=== PATIENT | female | born 1960 | race Caucasian/White ===

== ENCOUNTER 2016-12-18 10:28 | Emergency (ER) | payer OTHER ==
[~2016-12-18] VITALS: Ht 170.2 cm; Wt 65.9 kg
[~2016-12-18 10:28] MED LIST: ACCUPRIL10 MG PO; ALEVE220 MG PO; ALPRAZOLAM0.5 MG PO; ALPRAZOLAM1 MG PO; ASCORBIC ACID500 M3 PO; ASPIR-LOW81 MG PO; ATARAX,VISTARIL25 MG PO; ATIVAN0.5 MG PO; ATORVASTATIN CA40 MG PO; BENTYL10 MG PO; BENZONATATE100 MG PO; BIOTENE DRY MO237 ML MM; BREO ELLIPTA I1 EACH IH; CARAFATE1 GM PO; CELEXA20 MG PO; CELEXA40 MG PO; CIPRO500 MG PO; CLONAZEPAM1 MG PO; CLOPIDOGREL75 MG PO; COLACE100 MG PO; COLON HERBA1 CAPSULE PO; COMBIVENT RESPIM4 GM IH; COMBIVENT200 INHALA IH; CYANOCOBALAM1000 MCG PO; DESYREL100 MG PO; DICYCLOMINE HCL20 MG PO; DITROPAN5 MG PO; DUONEB 2.5-0.5 M3 ML AEROSOL; FLEXERIL10 MG PO; FLEXERIL5 MG PO; FLOVENT 22120 INHALA IH; FOLIC ACID1 MG PO; HYDROXYZINE HCL10 MG PO; HYDROXYZINE PAM25 MG PO; KLONOPIN1 MG PO; LEVAQUIN750 MG PO; LEVOTHROID100 MCG PO; LEVOXYL112 MCG PO; LIDODERM 5% P1 PATCH TD; LIPITOR80 MG PO; LO-DOSE ASPIRIN81 M1 PO; LORATADINE10 M2 PO; LYRICA100 MG PO; METHOTREXATE2.5 MG PO; METOPROLOL SUCC25 MG PO; MOTRIN800 MG PO; NICODERM CQ1 EACH TD; NORCO 5/3251 TABLET PO; OMEPRAZOLE40 M1 PO; PLAQUENIL200 MG PO; PLAVIX75 MG PO; PREDNISONE10 MG PO; PREDNISONE2.5 MG PO; PREDNISONE20 MG PO; PREDNISONE5 MG PO; PROBIOTIC1 EAC1 PO; PROTONIX40 MG PO; PROVENTIL2.5 MG/3 M IH; RANITIDINE HCL150 MG PO; REQUIP0.25 MG PO; REQUIP1 MG PO; SPIRIVA1 INHALATI IH; SUCRALFATE1 GM PO; SUMATRIPTAN SU100 MG PO; SYMBICORT60 INHALAT IH; SYNTHROID112 MCG PO; SYNTHROID125 MCG PO; TAMIFLU75 MG PO; TRAMADOL HCL50 MG PO; TRAZODONE HCL100 MG PO; TYLENOL WITH C1 EACH PO; ULTRAM50 MG PO; VENTOLIN HFA18 GM IH; VITAMIN D1000 INTUN PO; ZESTRIL,PRINIVI10 MG PO; ZOFRAN4 MG PO
[2016-12-18 12:08] LABS: ADD MIUA? YES; BILIRUBIN NEGATIVE; BLOOD MODERATE; COLOR COLORLESS ((YELLOW)); GLUCOSE (STRIP) NEGATIVE; KETONES NEGATIVE; LEUKOCYTES NEGATIVE; NITRITE NEGATIVE; PROTEIN (STRIP) NEGATIVE; SPECIFIC GRAVITY 1.004 (1.000-1.030); UROBILINOGEN 0.2 MG/DL (0.2-1.0)
[2016-12-18 12:10] LABS: BACTERIA NONE SEEN /HPF; EPITHELIAL CELLS NONE SEEN /HPF; MUCUS TRACE /LPF; RED BLOOD CELLS 0-5 /HPF (0-5); WHITE BLOOD CELLS 0-5 /HPF (0-5)
[2016-12-18] MEDS ORDERED: FLEXERIL10 MG PO (14:31)
[2016-12-18] MEDS ORDERED: ULTRAM50 MG PO (14:31)
[2016-12-18 14:48] VITALS: BP 121/64
== END 2016-12-18 14:57 | disposition home or self-care (01) ==
LOC: EME 10:28
PROVIDERS: Emergency Medicine
DX: M54.30 Sciatica, unspecified side (principal); M19.90 Unspecified osteoarthritis, unspecified site; J44.9 Chronic obstructive pulmonary disease, unspecified; M79.7 Fibromyalgia; I10 Essential (primary) hypertension; K21.9 Gastro-esophageal reflux disease without esophagitis; E03.9 Hypothyroidism, unspecified; M06.9 Rheumatoid arthritis, unspecified; M32.9 Systemic lupus erythematosus, unspecified; Z87.891 Personal history of nicotine dependence
CPT/HCPCS: 72100; 73502; 81003; 87086; 99281; 99285

== ENCOUNTER 2017-05-13 12:34 | Emergency (ER) | payer OTHER ==
[~2017-05-13] VITALS: Ht 170.2 cm; Wt 65.0 kg
[2017-05-13 13:53] LABS: MCH 33.9 PG (29.0-34.0); MCHC 34.5 G/DL (30.0-36.0); MCV 98.1 FL (83-99); PLATELET COUNT 162 K/uL (156-360); RBC DIS.WIDTH-CV 11.8 % (11.8-14.6); RBC DIS.WIDTH-SD 42.7 % (39-53); RED BLOOD COUNT 4.28 M/uL (3.80-5.20); WHITE BLOOD COUNT 6.5 K/uL (4.1-10.2)
[2017-05-13 14:02] LABS: ADD MIUA? YES; BILIRUBIN NEGATIVE; BLOOD MODERATE; COLOR STRAW ((YELLOW)); GLUCOSE (STRIP) NEGATIVE; KETONES NEGATIVE; LEUKOCYTES NEGATIVE; NITRITE NEGATIVE; PROTEIN (STRIP) NEGATIVE; SPECIFIC GRAVITY 1.004 (1.000-1.030); UROBILINOGEN 0.2 MG/DL (0.2-1.0)
[2017-05-13 14:06] LABS: BACTERIA RARE /HPF; EPITHELIAL CELLS RARE /HPF; MUCUS TRACE /LPF; RED BLOOD CELLS 0-5 /HPF (0-5); UCUL ADDED? NO; WHITE BLOOD CELLS 0-5 /HPF (0-5)
[2017-05-13 14:13] LABS: CHLORIDE 104 mEq/L (99-109); POTASSIUM 3.4 mEq/L (3.7-5.4); SODIUM 140 mEq/L (136-147)
[2017-05-13 14:15] LABS: GLUCOSE 77 mg/dL (70-99)
[2017-05-13 14:16] LABS: ANION GAP 9 MEQ/L (2-14)
[2017-05-13 14:17] LABS: TOTAL BILIRUBIN 0.5 mg/dL (0.0-1.0)
[2017-05-13 14:18] LABS: ALKALINE PHOSPHATASE 93 IU/L (3-129)
[2017-05-13 14:19] LABS: GFR ESTIMATE (CALCULATED) > 59 mL/min/
[2017-05-13 14:20] LABS: UREA NITROGEN (BUN) 10 mg/dL (9-23)
[2017-05-13 14:22] LABS: LIPASE 27 U/L (1.0-51.0)
[2017-05-13] MEDS ORDERED: BENTYL20 MG PO (15:11)
[2017-05-13] MEDS ORDERED: ZOFRAN ODT4 MG PO (15:11)
[2017-05-13 15:19] VITALS: BP 100/53
== END 2017-05-13 15:20 | disposition home or self-care (01) ==
LOC: EME 12:34
PROVIDERS: Nurse Practitioner Family
DX: R10.84 Generalized abdominal pain (principal); R19.7 Diarrhea, unspecified; I10 Essential (primary) hypertension; J44.9 Chronic obstructive pulmonary disease, unspecified; G89.29 Other chronic pain; K21.9 Gastro-esophageal reflux disease without esophagitis; I25.2 Old myocardial infarction; E03.9 Hypothyroidism, unspecified; M79.7 Fibromyalgia; F32.9 Major depressive disorder, single episode, unspecified; F41.9 Anxiety disorder, unspecified; F17.200 Nicotine dependence, unspecified, uncomplicated; Z99.81 Dependence on supplemental oxygen; Z79.02 Long term (current) use of antithrombotics/antiplatelets; Z79.82 Long term (current) use of aspirin; Z98.51 Tubal ligation status
CPT/HCPCS: 74177; 80053; 81003; 83690; 85027; 99281; 99284; J1885; J2405; J7030

== ENCOUNTER 2017-09-14 00:08 | Observation (INO) | payer OTHER ==
[~2017-09-14] VITALS: Ht 170.2 cm; Wt 71.8 kg
[~2017-09-14 00:08] MED LIST changes: +ACCUPRIL20 MG PO; -ALPRAZOLAM0.5 MG PO; +BENTYL20 MG PO; -SYNTHROID125 MCG PO; +SYNTHROID137 MCG PO; +ZOFRAN ODT4 MG PO
[2017-09-14 00:44] LABS: HEMATOCRIT 41.8 % (36.0-46.0); HEMOGLOBIN 14.3 G/DL (11.9-15.5); MCH 35.3 PG (29.0-34.0); MCHC 34.2 G/DL (30.0-36.0); MCV 103.2 FL (83-99); PLATELET COUNT 164 K/uL (156-360); RBC DIS.WIDTH-CV 11.4 % (11.8-14.6); RBC DIS.WIDTH-SD 43.8 % (39-53); RED BLOOD COUNT 4.05 M/uL (3.80-5.20); WHITE BLOOD COUNT 8.7 K/uL (4.1-10.2)
[2017-09-14 01:05] LABS: CHLORIDE 104 mEq/L (99-109); POTASSIUM 3.7 mEq/L (3.7-5.4); SODIUM 139 mEq/L (136-147)
[2017-09-14 01:07] LABS: GLUCOSE 104 mg/dL (70-99)
[2017-09-14 01:11] LABS: CREATININE 1.6 mg/dL (0.6-1.3); GFR ESTIMATE (CALCULATED) 35 mL/min/; UREA NITROGEN (BUN) 23 mg/dL (9-23)
[2017-09-14 01:20] LABS: TROP-I INTERPRETATION NEGATIVE; TROPONIN-I < 0.01 ng/mL (0.0-0.30)
[2017-09-14 02:23] LABS: APPEARANCE SL.HAZY ((CLEAR)); BILIRUBIN NEGATIVE; BLOOD NEGATIVE; COLOR YELLOW ((YELLOW)); GLUCOSE (STRIP) NEGATIVE; KETONES NEGATIVE; LEUKOCYTES NEGATIVE; NITRITE NEGATIVE; PROTEIN (STRIP) NEGATIVE; UROBILINOGEN 0.2 MG/DL (0.2-1.0)
[2017-09-14 02:31] LABS: BACTERIA NONE SEEN /HPF; EPITHELIAL CELLS RARE /HPF; MUCUS TRACE /LPF; RED BLOOD CELLS 0-5 /HPF (0-5); UCUL ADDED? NO; WHITE BLOOD CELLS 0-5 /HPF (0-5)
[2017-09-14 07:12] LABS: HEMATOCRIT 39.6 % (36.0-46.0); HEMOGLOBIN 13.3 G/DL (11.9-15.5); MCH 35.2 PG (29.0-34.0); MCHC 33.6 G/DL (30.0-36.0); MCV 104.8 FL (83-99); PLATELET COUNT 134 K/uL (156-360); RBC DIS.WIDTH-CV 11.5 % (11.8-14.6); RBC DIS.WIDTH-SD 44.2 % (39-53); RED BLOOD COUNT 3.78 M/uL (3.80-5.20); WHITE BLOOD COUNT 5.9 K/uL (4.1-10.2)
[2017-09-14 07:45] LABS: TROP-I INTERPRETATION NEGATIVE; TROPONIN-I < 0.01 ng/mL (0.0-0.30)
[2017-09-14 07:54] LABS: HDL CHOLESTEROL 37 MG/DL (Desirable>=50); LDL CHOLESTEROL 34 mg/dL (Desirable<100); NON-HDL CHOLESTEROL 47 mg/dL (Desirable<160); TOTAL CHOLESTEROL 84 mg/dL (Desirable<200); TRIGLYCERIDES 63 MG/DL (Normal: <150)
[2017-09-14 07:55] LABS: ALBUMIN 3.3 G/DL (3.2-4.8); ALKALINE PHOSPHATASE 64 IU/L (3-129); ALT (GPT) 15 IU/L (3-49); AST (GOT) 14 IU/L (2-34); CHLORIDE 111 MEQ/L (99-109); GLUCOSE 67 mg/dL (70-99); POTASSIUM 3.8 MEQ/L (3.7-5.4); SODIUM 144 MEQ/L (136-147); TOTAL BILIRUBIN 0.2 MG/DL (0.0-1.0); TOTAL PROTEIN 5.1 G/DL (6.4-8.3); UREA NITROGEN (BUN) 19 mg/dL (9-23)
[2017-09-14 07:56] LABS: GFR ESTIMATE (CALCULATED) > 59 mL/min/
[2017-09-14] MEDS ORDERED: ZOLPIDEM TARTRA10 MG PO (11:14)
[2017-09-14] MEDS ORDERED: DULOXETINE HCL60 MG PO (11:15)
[2017-09-14] MEDS ORDERED: LYRICA75 MG PO (11:15)
[2017-09-14 13:07] LABS: TROP-I INTERPRETATION NEGATIVE; TROPONIN-I < 0.01 ng/mL (0.0-0.30)
[2017-09-14 13:09] VITALS: BP 152/76
[2017-09-14 13:20] LABS: HEMOGLOBIN A1c (GLYCOHEMOGLOB) 4.8 % (Below 5.7)
[2017-09-14 16:41] VITALS: BP 134/61
[2017-09-14 19:23] LABS: TROP-I INTERPRETATION NEGATIVE; TROPONIN-I < 0.01 ng/mL (0.0-0.30)
[2017-09-14 19:30] VITALS: BP 102/55
[2017-09-15] VITALS: BP 112/59
[2017-09-15 04:00] VITALS: BP 110/58
[2017-09-15 06:11] LABS: BASOPHIL (%) 0.1 % (0-1); EOSINOPHIL (%) 0 % (0-5); HEMOGLOBIN 13.1 G/DL (11.9-15.5); IMMATURE GRANULOCYTE (%) 0.7 % (0.0-0.7); LYMPHOCYTE (%) 12.3 % (15-42); LYMPHOCYTE COUNT 1.5 K/uL (1.0-2.8); MCH 35.7 PG (29.0-34.0); MCHC 34.5 G/DL (30.0-36.0); MCV 103.5 FL (83-99); MONOCYTE (%) 3.9 % (3-12); MONOCYTE COUNT 0.5 K/uL (0-0.8); NEUTROPHIL COUNT 10.2 K/uL (1.8-6.4); PLATELET COUNT 136 K/uL (156-360); RBC DIS.WIDTH-CV 11.3 % (11.8-14.6); RBC DIS.WIDTH-SD 43.2 % (39-53); RED BLOOD COUNT 3.67 M/uL (3.80-5.20); WHITE BLOOD COUNT 12.3 K/uL (4.1-10.2)
[2017-09-15 06:52] LABS: CHLORIDE 106 MEQ/L (99-109); CREATININE 0.8 MG/DL (0.6-1.3); GFR ESTIMATE (CALCULATED) > 59 mL/min/; POTASSIUM 4.2 MEQ/L (3.7-5.4); SODIUM 140 MEQ/L (136-147); UREA NITROGEN (BUN) 19 mg/dL (9-23)
[2017-09-15 07:02] LABS: GLUCOSE 126 mg/dL (70-99)
[2017-09-15 07:45] VITALS: BP 109/60
[2017-09-15] MEDS ORDERED: AZITHROMYCIN500 MG PO (12:29)
[2017-09-15] MEDS ORDERED: PLAVIX75 MG PO (12:29)
[2017-09-15] MEDS ORDERED: PREDNISONE10 MG PO (12:56)
== END 2017-09-15 14:48 | disposition home or self-care (01) ==
LOC: EME 00:08 → EDOF 04:13 → ENRESERV 04:19 → 5WEST 13:00 → ENPENDDIS 09-15 12:58 → 5WEST 09-15 14:48
PROVIDERS: Emergency Medicine; Internal Medicine; Physician Assistant Medical; Student in an Organized Health Care Education/Training Program
DX: J43.2 Centrilobular emphysema (principal); G45.9 Transient cerebral ischemic attack, unspecified; R09.02 Hypoxemia; R07.9 Chest pain, unspecified; I65.23 Occlusion and stenosis of bilateral carotid arteries; I25.10 Atherosclerotic heart disease of native coronary artery without angina pectoris; F32.9 Major depressive disorder, single episode, unspecified; F41.9 Anxiety disorder, unspecified; E03.9 Hypothyroidism, unspecified; K21.9 Gastro-esophageal reflux disease without esophagitis; F17.200 Nicotine dependence, unspecified, uncomplicated; Z95.5 Presence of coronary angioplasty implant and graft; I10 Essential (primary) hypertension; E78.00 Pure hypercholesterolemia, unspecified; Z99.81 Dependence on supplemental oxygen; M79.7 Fibromyalgia; Z88.2 Allergy status to sulfonamides; Z88.8 Allergy status to other drugs, medicaments and biological substances; Z79.82 Long term (current) use of aspirin; Z79.02 Long term (current) use of antithrombotics/antiplatelets; N17.0 Acute kidney failure with tubular necrosis
CPT/HCPCS: 70450; 70551; 71046; 71250; 80048; 80053; 80061; 81003; 83036; 84484; 85025; 85027; 85379; 93005; 93306; 93880; 94640; 94640 76; 94799; 99202; 99281; 99285; G0378; J0456; J1644; J2930; J7030; J7512

== ENCOUNTER 2017-12-18 10:23 | Emergency (ER) | payer OTHER ==
[~2017-12-18] VITALS: Ht 170.2 cm; Wt 66.9 kg
[~2017-12-18 10:23] MED LIST changes: +AZITHROMYCIN500 MG PO; +DULOXETINE HCL60 MG PO; +LYRICA75 MG PO; +ZOLPIDEM TARTRA10 MG PO
[2017-12-18 11:34] LABS: BASOPHIL (%) 0.6 % (0-1); EOSINOPHIL (%) 0.9 % (0-5); HEMATOCRIT 41.8 % (36.0-46.0); HEMOGLOBIN 14.8 G/DL (11.9-15.5); IMMATURE GRANULOCYTE (%) 0.4 % (0.0-0.7); LYMPHOCYTE (%) 27.1 % (15-42); LYMPHOCYTE COUNT 1.3 K/uL (1.0-2.8); MCHC 35.4 G/DL (30.0-36.0); MCV 98.8 FL (83-99); MONOCYTE (%) 13.9 % (3-12); MONOCYTE COUNT 0.6 K/uL (0-0.8); NEUTROPHIL (%) 57.1 % (45-76); NEUTROPHIL COUNT 2.6 K/uL (1.8-6.4); PLATELET COUNT 137 K/uL (156-360); RBC DIS.WIDTH-CV 11.8 % (11.8-14.6); RBC DIS.WIDTH-SD 43.1 % (39-53); RED BLOOD COUNT 4.23 M/uL (3.80-5.20); WHITE BLOOD COUNT 4.6 K/uL (4.1-10.2)
[2017-12-18 11:40] LABS: INTER. NORMALIZED RATIO 1.1
[2017-12-18 11:42] LABS: CHLORIDE 102 mEq/L (99-109); POTASSIUM 3.9 mEq/L (3.7-5.4); PTT 32.4 SEC (25-37); SODIUM 139 mEq/L (136-147)
[2017-12-18 11:43] LABS: GLUCOSE 101 mg/dL (70-99)
[2017-12-18 11:47] LABS: CREATININE 0.8 mg/dL (0.6-1.3); GFR ESTIMATE (CALCULATED) > 59 mL/min/
[2017-12-18 11:48] LABS: UREA NITROGEN (BUN) 10 mg/dL (9-23)
[2017-12-18 11:54] LABS: TROP-I INTERPRETATION NEGATIVE; TROPONIN-I < 0.01 ng/mL (0.0-0.30)
[2017-12-18] MEDS ORDERED: ZITHROMAX Z-PA250 MG PO (12:20)
[2017-12-18] MEDS ORDERED: PREDNISONE20 MG PO (12:20)
[2017-12-18 13:17] VITALS: BP 116/63
== END 2017-12-18 13:18 | disposition home or self-care (01) ==
LOC: EME 10:23
PROVIDERS: Emergency Medicine
DX: J20.9 Acute bronchitis, unspecified (principal); J43.9 Emphysema, unspecified; F17.200 Nicotine dependence, unspecified, uncomplicated; Z99.81 Dependence on supplemental oxygen; I10 Essential (primary) hypertension; M32.9 Systemic lupus erythematosus, unspecified; F41.9 Anxiety disorder, unspecified; F32.9 Major depressive disorder, single episode, unspecified; I25.2 Old myocardial infarction; M79.7 Fibromyalgia; K21.9 Gastro-esophageal reflux disease without esophagitis; E03.9 Hypothyroidism, unspecified; Z79.82 Long term (current) use of aspirin; Z88.2 Allergy status to sulfonamides
CPT/HCPCS: 71046; 80048; 83605; 84484; 85025; 85610; 85730; 87040; 93005; 94640; 99281; 99285; J7030; J7512